=== PATIENT | female | born 1995 | race American Indian/Alaskan Native ===

== ENCOUNTER 2017-10-29 18:56 | Outpatient (CLI) | payer OTHER ==
[2017-10-29] MEDS ORDERED: LACTATED RINGERS 500 ML IV ONE (20:38)
[2017-10-29] MEDS ORDERED: TYLENOL PO NR (22:14)
[2017-10-29 22:36] LABS: Bilirubin,Urine NEG (Negative); Blood,Urine NEG (Negative); Color,Urine Yellow (Yellow); Mucus,Urine FEW /HPF; Protein,Urine <15 mg/dL mg/dL (Negative); Urobilinogen,Urine < 2.0 mg/dL (<2.0)
--- NOTE | 2017-10-29 22:42 | Ultrasound Report ---
FINAL REPORT EXAM: US OB > = 14 WEEKS FETUS HISTORY: back pain and cramping TECHNIQUE: Ultrasound obstetrical transabdominal PRIORS: None. FINDINGS: Single live intrauterine gestation present. Position is cephalic Placenta is grade 0 and anterior Amniotic fluid index is within normal limits 19.2 centimeters Cervical length is 3.5 centimeters cardiac activity is present heart rate of 137 beats minute biometric data were obtained. Biparietal diameter 25 weeks 1 day Head circumference 21 weeks 2 days Abdominal circumference 26 weeks 6 days femur length 26 weeks 3 days Based on today's exam composite gestational age is estimated at 26 weeks 3 days with estimated date of deliver February 01, 2018 Following structures appear grossly unremarkable, cisterna magna and posterior fossa, most and stomach, kidneys, urinary bladder, diaphragm, four-chamber view of the heart, three-vessel cord and cord insert Spine was incompletely imaged Based on today's exam estimated weight is 967 grams IMPRESSION: Single live intrauterine gestation estimated at twenty-six weeks 3 days
== END 2017-10-29 22:47 | disposition home or self-care (01) ==
LOC: TRG 18:56
PROVIDERS: ATTEND Obstetrics & Gynecology
DX: O99.332 Smoking (tobacco) complicating pregnancy, second trimester (principal); F17.200 Nicotine dependence, unspecified, uncomplicated; O47.02 False labor before 37 completed weeks of gestation, second trimester; Z3A.26 26 weeks gestation of pregnancy
CPT/HCPCS: 76805; 81001

== ENCOUNTER 2019-08-19 20:33 | Emergency (ER) | payer OTHER ==
[2019-08-19 22:20] VITALS: BP 108/66
--- NOTE | 2019-08-19 22:25 | Event Note ---
ED Screening Note Date of service: 08/19/19 Time: 22:22 ED Screening Note: Patient presents to the ED with c/o acute onset persistent nasal and sinus congestion, dry cough for 1 week. Patient states that she would like to be checked for "common viruses" and UTI. Patient states that last time she had similar symptoms she was diagnosed with kidney infections. Patient denies fever, chills, sore throat, dizziness, abdominal pain. In the ED, patient is alert and oriented x 3 and is in no acute distress. This initial assessment/diagnostic orders/clinical plan/treatment(s) is/are subject to change based on patients health status, clinical progression and re- assessment by fellow clinical providers in the ED. Further treatment and workup at subsequent clinical providers discretion. Patient/guardian urged not to elope from the ED as their condition may be serious if not clinically assessed and managed. Initial orders include: UA, Chest x-ray
[2019-08-20 00:29] LABS: Bilirubin,Urine NEG (Negative); Blood,Urine NEG (Negative); Color,Urine Yellow (Yellow); Mucus,Urine FEW /HPF; Protein,Urine <15 mg/dL mg/dL (Negative)
[2019-08-20 00:35] LABS: HCG Qualitative,Urine Negative (Negative)
== END 2019-08-20 00:50 | disposition left against medical advice (07) ==
LOC: ED 20:33
DX: R06.02 Shortness of breath (principal); Z53.21 Procedure and treatment not carried out due to patient leaving prior to being seen by health care provider
CPT/HCPCS: 81001; 81025